=== PATIENT | male | born 1955 | race Caucasian/White ===

== ENCOUNTER 2019-09-07 16:53 | Inpatient (IN) | payer OTHER, SELFPAY ==
--- NOTE | ~2019-09-07 | XR_ITS ---
XR cholangiogram surg 1st inj DATE: 09/08/2019 16:33 INDICATION: Right upper quadrant abdominal pain. History of cholelithiasis. TECHNIQUE: Multiple spot C-arm images of right upper quadrant during cystic duct contrast injection d uring cholecystectomy procedure COMPARISON: None FINDINGS: There is an obstructing filling defect of the distal common bile duct, likely a distal comm on bile duct stone. There is mild dilatation of the extrahepatic biliary tree. IMPRESSION: Distal common bile duct obstruction, likely by a distal common bile duct stone Reviewed, dictated and finalized at [facility]. Reviewed, dictated and finalized at location A.
--- NOTE | ~2019-09-07 | XR_ITS ---
EXAMINATION: XR chest 1V portable INDICATION: Chest pain TECHNIQUE: Portable AP chest at 1751 hours COMPARISON: 10/10/2018 FINDINGS: There are minimal airspace opacities of the lung bases. No pleural effusion or pneumothorax is identified. The cardiomediastinal silhouette is normal. A coronary artery stent is noted. IMPRESSION: 1. Minimal airspace opacities of the lung bases, consistent with atelectasis versus pneumonia. Reviewed, dictated and finalized at location [facility]. IMPRESSION: 1. Minimal airspace opacities of the lung bases, consistent with atelectasis ve rsus pneumonia.
--- NOTE | ~2019-09-07 | XR_ITS ---
EXAMINATION: XR fluoroscopy no charge EXAM DATE: 09/09/2019 13:59 INDICATION: ERCP, abnormal cholangiogram reported as common bile duct obstruction. TECHNIQUE: Fluoroscopy used during ERCP performed by Dr. Shaheed Dalton MD. Fluoroscopic time of 1. 5 minutes with single static image available for interpretation. FINDINGS: Image demonstrates ERCP scope, CBD cannulation. Cholecystectomy clips. Moderate bowel gas. Correlate with procedure note. IMPRESSION: Fluoroscopy used during ERCP. Reviewed, dictated and finalized at location A.
--- NOTE | ~2019-09-07 | MR_ITS ---
EXAMINATION: MR MRCP wo/w con/w 3D wo ind DATE: 09/10/2019 08:56 INDICATION: Abnormal liver function tests. Common duct obstruction. TECHNIQUE: Magnetic resonance imaging (MRI) of the abdomen was performed without and with 17 mL Multi Cristian intravenous contrast. Sequences included coronal T2-weighted FS FSE, coronal T2-weighted FSE, a xial T1-weighted LAVA, coronal FS FIESTA, axial dual-echo T1-weighted SPGR, coronal lava-FLEX, sagitt al T2-weighted FSE, axial T2-weighted FSE, and axial DWI. Thick-slab T2-weighted FSE images were obta ined for magnetic resonance cholangiopancreatography (MRCP). Maximum intensity projection 3-D reconst ructions of the volumetric data were created by the technologist. Postcontrast sequences included cor onal LAVA-flex and time course of axial T1-weighted LAVA. COMPARISON: Cholangiogram 09/08/2019, ultrasound 04/17/2018 FINDINGS: ABDOMEN MRI: The lungs demonstrate mild atelectasis. There are trace pleural effusions. There are cys ts in the liver measuring up to 10 mm. There are changes of recent cholecystectomy. There is a small volume of ascites, including in the gallbladder fossa. There is a small volume of free intraperitonea l gas. The spleen is normal. There is incomplete pancreas divisum. The adrenal glands are normal. The re are cysts in the kidneys measuring up to 16 mm on the left. There are no dilated loops of bowel. T here are no pathologically enlarged lymph nodes. ABDOMEN MRCP: The common duct is normal and measures 7 mm. No choledocholithiasis. IMPRESSION: 1. No choledocholithiasis. 2. Small volume of ascites. Reviewed, dictated and finalized at location A.
--- NOTE | 2019-09-07 16:59 | ED.CHESTPAIN ---
HPI - Chest Pain General Chief Complaint: Chest Pain Stated Complaint: chest pain Time Seen by Provider: 09/07/19 16:58 Source: patient Mode of arrival: ambulatory Limitations: no limitations History of Present Illness HPI narrative: Patient is a 64 year old male who presents to the ED with complaints of lower sternum chest pain that started 40 minutes prior to arrival to the ED. His chest pain was originally an 8/10 and it went down to a 6/10 and is now a 4/10. He reports associated shortness of breath and sweats, but denies nausea, vomiting, diarrhea, cough, or cold. Patient took 2 Nitro 20 minutes ago. He has been having gallbladder attacks and was supposed to have surgery last week but it got cancelled due to the pandemic. He had pain a couple of days ago that got better after using his antacids but today it did not get better with his antacids. He was taking Coumadin but stopped because he was supposed to have surgery. He had a turkey sandwich with a hand full of Doritos before his pain started. He has a history of a heart attack with stent placement a year ago. He drinks occasionally but denies smoking or using drugs. 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 MD complaint: chest pain Pertinent past history: coronary artery disease and prior NC Onset (ago): minute(s) (40) Timing of current episode: episodic Prior episodes: Yes Onset: during rest Pain location: other (lower sternum) Pain scale (0-10): 4 Relieving factors: nothing Associated symptoms: diaphoresis Treatment prior to arrival: nitroglycerin Related Data Home Medications Medication Instructions Recorded Confirmed aspirin [Adult Low Dose Aspirin] 81 mg DAILY 09/07/19 09/07/19 atorvastatin 40 mg PO DAILY 09/07/19 09/07/19 carvedilol 3.125 mg PO BID 09/07/19 09/07/19 cholecalciferol (vitamin D3) 50,000 unit PO MONTHLY 09/07/19 09/07/19 nitroglycerin 0.4 mg SUBLINGUAL PRN PRN 09/07/19 09/07/19 omeprazole 20 mg PO DAILY 09/07/19 09/07/19 ticagrelor [Brilinta] 90 mg PO BID 09/07/19 09/07/19 Allergies Allergy/AdvReac Type Severity Reaction Status Date / Time levofloxacin Allergy Unknown Joint Pain Verified 09/07/19 17:04 Review of Systems Review of Systems: All systems reviewed & are unremarkable except as noted in HPI and below Constitutional: Constitutional: Denies chills and Reports other (sweats) Cardiovascular: Cardiovascular: Reports chest pain (lower sternum) Respiratory: Respiratory: Denies cough and Reports dyspnea Gastrointestinal: Gastrointestinal: Denies diarrhea, Denies nausea and Denies vomiting PMFSH Past Medical History Medical History (Updated 09/07/19 @ 21:19 by Kiki Nguyen MD) Acne rosacea BMI 24.0-24.9, adult Colon cancer screening Encounter for preventive health examination Encounter for special screening examination for neoplasm of prostate FHx: colon cancer Gallbladder attack Hearing loss Hx of myocardial infarction On intermodal owner operator truck driver drug therapy Surgical History Surgical History (Updated 09/07/19 @ 18:03 by Zaida Das) H/O heart artery stent History of cardiac catheterization Family History Family History (Updated 09/07/19 @ 19:56 by Nargis Ashford RN) Sibling Carcinoma of colon Hypertension Mother Family history of Alzheimer's disease Father Heart attack Carcinoma of colon Other Family history of cardiovascular disease Family history of malignant neoplasm Social History Social History Smoking status: Never smoker Alcohol intake: current Drinks per week: 4 Gender identity (if verbalized by the patient): Male Spiritual care concerns: No Agree to blood products: Yes Exam Const: General: cooperative, healthy appearing, no acute distress and other (talks fast) Nutritional Appearance: thin and other (tall) HENMT: Head: normocephalic and atraumatic Eyes: Pupils: Equal, round and reactive pupils present EOM: EOMs intact bilaterally Resp: Effort & I
[2019-09-07 17:00] VITALS: BP 127/82; PULSE 69; RESP 20; O2SAT 100
[2019-09-07 17:26] LABS: Basophils Percent Auto 0.5 % (0.2-1.2); Eosinophils Absolute Auto 0.5 K/mm3 (0-0.3); Eosinophils Percent Auto 6.5 % (0-4.4); Hematocrit 41.6 % (42.0-52.0); Hemoglobin 14.6 g/dL (14.0-18.0); Immature Granulocyte Absolute 0.02 K/mm3 (0.00-0.031); Immature Granulocyte Percent A 0.3 % (0-0.5); Lymphocytes Absolute Auto 1.66 K/mm3 (0.9-3.2); Lymphocytes Percent Auto 21.9 % (18.3-44.2); Mean Corpuscular HGB Conc 35.1 g/dl (32-36); Mean Corpuscular Hemoglobin 33.8 pg (26-34); Mean Corpuscular Volume 96.3 fl (80-100); Mean Platelet Volume 9.6 fl (7.4-10.4); Monocytes Absolute Auto 0.8 K/mm3 (0.1-0.6); Monocytes Percent Auto 10.6 % (2.6-8.5); Neutrophils Absolute Auto 4.6 K/mm3 (1.3-6.7); Neutrophils Percent Auto 60.2 % (45.5-73.1); Platelet Count Result 232 k/mm3 (150-375); Red Blood Count 4.32 M/mm3 (4.6-6.20); Red Cell Distribution Width 12.7 % (11.5-14.5); White Blood Count 7.6 K/mm3 (4.5-10.0)
[2019-09-07 17:34] LABS: Alanine Aminotransferase 48 U/L (4-50); Albumin Level 4.4 g/dL (3.5-5.1); Alkaline Phosphatase 41 U/L (38-126); Aspartate Amino Transferase 50 U/L (17-59); Bilirubin,Total 1.1 mg/dL (0.2-1.3); Blood Urea Nitrogen 24 mg/dL (9-20); Calcium 9.6 mg/dL (8.4-10.2); Carbon Dioxide 21 mmol/L (22-30); Chloride 104 mmol/L (98-107); Estimated CRCL calculation 64 ml/min; Estimated Glomerular Filt Rate > 60; Glucose 112 mg/dL (75-110); Potassium 3.9 mmol/L (3.4-5.0); Sodium 136 mmol/L (137-145)
[2019-09-07] MEDS: SODIUM CHLORIDE 0.9% IV 1,000 ML 150 ML IV CONT (17:40)
[2019-09-07] MEDS: MORPHINE SULFATE 4 MG/ML INJ IV PUSH (17:42)
[2019-09-07] MEDS: ONDANSETRON INJ 4 MG/2 ML VIAL IV PUSH (17:42)
[2019-09-07 17:46] LABS: NT Pro B Type Natriuretic Pept 45 PG/ML (5-100); Troponin I < 0.012 ng/mL (0.000-0.034)
[2019-09-07 19:47] VITALS: BP 113/73; PULSE 75; RESP 18; O2SAT 97
[2019-09-07 20:00] VITALS: PULSE 68
--- NOTE | 2019-09-07 20:01 | ADMGEN ---
This patient, Francesco Ramires, was admitted to IMU Room 200-01. Patient/family oriented to hospital policies and general routines including ID bracelet, bed and alarms, visiting hours, pain management, procedures, bathroom and other care routines, personal items, smoking policy, room service/diet, and visiting hours. Valuables list has been completed. Information on how to activate the Rapid Response Team has been discussed. Patient/Family are encouraged to report perceived risks to care and to ask questions if they do not understand what they are told or what they should do.
[2019-09-07 20:02] VITALS: BP 115/73; PULSE 65; RESP 18; TEMP 36.6; O2SAT 100; BMI 23.2
[2019-09-07 21:58] LABS: Troponin I < 0.012 ng/mL (0.000-0.034)
[2019-09-07 21:59] VITALS: PULSE 83
[2019-09-07] MEDS: carvediloL 3.125 MG TABLET PO (21:59)
[2019-09-07 22:00] VITALS: PULSE 68
[2019-09-08] VITALS (21 sets, daily range): BP systolic 101–141; BP diastolic 61–87; PULSE 58–90; RESP 12–20; TEMP 36.4–37.3; O2SAT 93–100
[2019-09-08 00:49] LABS: Troponin I < 0.012 ng/mL (0.000-0.034)
[2019-09-08 04:47] LABS: Basophils Percent Auto 0.8 % (0.2-1.2); Eosinophils Absolute Auto 0.3 K/mm3 (0-0.3); Eosinophils Percent Auto 6.6 % (0-4.4); Hemoglobin 13.7 g/dL (14.0-18.0); Immature Granulocyte Absolute 0.01 K/mm3 (0.00-0.031); Immature Granulocyte Percent A 0.2 % (0-0.5); Lymphocytes Absolute Auto 1.23 K/mm3 (0.9-3.2); Lymphocytes Percent Auto 25.4 % (18.3-44.2); Mean Corpuscular HGB Conc 34.3 g/dl (32-36); Mean Corpuscular Hemoglobin 33.7 pg (26-34); Mean Corpuscular Volume 98.3 fl (80-100); Mean Platelet Volume 9.2 fl (7.4-10.4); Monocytes Absolute Auto 0.4 K/mm3 (0.1-0.6); Monocytes Percent Auto 8.3 % (2.6-8.5); Neutrophils Absolute Auto 2.8 K/mm3 (1.3-6.7); Neutrophils Percent Auto 58.7 % (45.5-73.1); Platelet Count Result 172 k/mm3 (150-375); Red Blood Count 4.07 M/mm3 (4.6-6.20); Red Cell Distribution Width 13.1 % (11.5-14.5); White Blood Count 4.8 K/mm3 (4.5-10.0)
[2019-09-08 04:58] LABS: Partial Thromboplastin Time 34.5 SECONDS (22.3-36.8)
[2019-09-08 05:27] LABS: Alanine Aminotransferase 47 U/L (4-50); Albumin Level 3.7 g/dL (3.5-5.1); Alkaline Phosphatase 36 U/L (38-126); Aspartate Amino Transferase 35 U/L (17-59); Bilirubin,Total 0.9 mg/dL (0.2-1.3); Blood Urea Nitrogen 15 mg/dL (9-20); Calcium 8.4 mg/dL (8.4-10.2); Carbon Dioxide 24 mmol/L (22-30); Chloride 106 mmol/L (98-107); Estimated CRCL calculation 93 ml/min; Estimated Glomerular Filt Rate > 60; Glucose 72 mg/dL (75-110); Magnesium 2.1 mg/dL (1.6-2.3); Potassium 3.6 mmol/L (3.4-5.0); Sodium 141 mmol/L (137-145)
--- NOTE | 2019-09-08 06:07 | PM.IMHP ---
H&P: HPI History of Present Illness Chief complaint: chest pain Narrative: Date and time of patient contact: 09/08/2019 at 5:30 a.m. Francesco Ramires is a 64 year old male with a past medical history of coronary artery disease with history of 3 cardiac stents July 2018 and gallbladder dysfunction who presented to the ER from home with chest pain. The patient reports that the chest pain is in the bottom of his sternum. The pain is started 40 minutes before he arrived to the ER and was originally 8/10 intensity and decreased down to a 4/10 in intensity. He reports associated shortness of breath and sweats. He denies any nausea or vomiting. He has not had change in bowel movements. He did have a positive Cologuard test in his planned colonoscopy has been rescheduled due to COVID-19 precautions. He has not had any constipation or diarrhea. He denies any hematochezia or melena. He reports that the pain is similar to when he had his STEMI. He had actually been scheduled for a cholecystectomy last year but it was canceled when he had his STEMI. It was thought that the patient's symptoms were all due to his heart and not his gallbladder. He reported that 3 months ago he began having symptoms again and has been to the ER the on 3 different occasions due to the symptoms. Each time he has had negative EKGs and enzymes. He was subsequently rescheduled for a cholecystectomy last week but that too was rescheduled due to the COVID-19 precautions. In the last 3 days he has had 3 episodes of gallbladder attacks. The last 2 days had improved with antacids and Pepcid. However when he presented to the ER yesterday his symptoms were more severe and he required morphine for pain relief. He had taken 2 nitro and Pepcid at home yesterday before coming to the ER with only minimal relief in his symptoms. He had previously been on Coumadin according to the ER note but it had been held for anticipated surgery. He has also been on Brilinta. His last dose of Brilinta was on the morning of the . He has been doing yard work for several hours a day for the last week or so without any shortness of breath. He was more concerned about yesterday's pain because he had not eaten for several hours prior to the onset of his symptoms. His last meal had been turkey sandwich and some tortilla chips for lunch. He reports that since his heart symptoms in his gallbladder symptoms are so similar in that he is going to continue keeps coming into the ER each time he has an attack/pain until his gallbladder is taken out. He denies any cough, congestion, fevers or chills. 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 He denies any ill contacts. Review of Systems Review of Systems: Narrative: 12 systems were reviewed with pertinent positives and negatives per HPI. Except as documented in the HPI, all other systems were reviewed and are negative. [facility] Past Medical History Medical History (Updated 09/08/19 @ 06:26 by Jeannie Jerome DO) Acne rosacea BMI 24.0-24.9, adult Colon cancer screening Colonoscopy has been ordered but delayed due to code 19 concerns Hearing loss Hx of myocardial infarction Surgical History Surgical History (Updated 09/08/19 @ 06:26 by Jeannie Jerome DO) H/O heart artery stent 3 stents August 2019 History of cardiac catheterization Family History Family History (Updated 09/08/19 @ 06:30 by Jeannie Jerome DO) Sibling Hypertension Carcinoma of colon Mother Dementia Father Heart attack Carcinoma of colon Social History Social History (Updated 09/08/19 @ 06:31 by Jeannie Jerome DO) Social History: Primary care physician: Dr. Dane Greco Code status: Full code Smoking status: Never smoker Alcohol intake: current Drinks per week: 4 Alcohol use details: The patient drinks between 4 and 5 alcoholic beverages a week. Living arrangements: with family Additional living
[2019-09-08] MEDS: DEXTROSE 5%/0.9% SOD CHL 1,000 ML 75 ML IV CONT (08:46)
[2019-09-08] MEDS: carvediloL 3.125 MG TABLET PO ×2 (08:53→21:08)
--- NOTE | 2019-09-08 09:13 | PM.IMPN ---
Progress Note: A&P Assessment and Plan (1) Gallbladder attack: Code(s): K82.9 - Disease of gallbladder, unspecified Status: Acute Assessment and Plan: Per patient, symptoms are similar to previous known gallbladder attacks. Was previously scheduled to have gallbladder removed but canceled due to current pandemic. LFTs are currently normal. General surgery consulted from the emergency room and await consultation. In the meantime, will leave patient NPO. Will start IV fluids with dextrose as glucose in the 60s this morning. Will continue to monitor. (2) Chest pain: Qualifiers: Chest pain type: unspecified Qualified Code(s): R07.9 - Chest pain, unspecified Code(s): R07.9 - Chest pain, unspecified Status: Acute Assessment and Plan: Patient actually complaining of epigastric pain which is more consistent with his known gallbladder issues. Serial troponin levels are negative x3. EKG with no acute changes. Telemetry reviewed on 09/08/2019 with sinus rhythm. No cardiology consultation needed at this time. (3) CAD (coronary artery disease): Qualifiers: Coronary Disease-Associated Artery/Lesion type: [place] artery [place] vs. transplanted heart: [place] heart Associated angina: without angina Qualified Code(s): I25.10 - Atherosclerotic heart disease of [place] coronary artery without angina pectoris Code(s): I25.10 - Atherosclerotic heart disease of [place] coronary artery without angina pectoris Status: Acute Assessment and Plan: Known history of myocardial infarction with stent placement. Patient reports he last took Brilinta at 8:00 a.m. on 09/07/2019. Last ASA was 48 hours ago. Will leave Brilinta and ASA on hold while awaiting surgical evaluation. Continue Coreg and atorvastatin. Will monitor. (4) DVT prophylaxis: Code(s): Z29.9 - Encounter for prophylactic measures, unspecified Status: Acute Assessment and Plan: No mechanical or pharmacologic as low risk presently and being evaluated by surgery. Time Spent With Patient Time with patient: 15 - 25 minutes Subjective Date/time seen: 09/08/19 09:13 Interval history: Date of Service: 09/08/2019. Admitted with epigastric pain. Patient with known CAD but also gallbladder disease. Still has some epigastric pain this morning to palpation. No nausea or vomiting. Does have headache and dizziness from not eating. No chest pain or pressure. No shortness of breath. Review of Systems Constitutional: Constitutional: Denies chills and Denies fever(s) ENT: Denies nasal congestion and Denies nasal discharge Cardiovascular: Cardiovascular: Denies chest pain and Denies palpitations Respiratory: Respiratory: Denies dyspnea Gastrointestinal: Gastrointestinal: Reports abdominal pain (epigastric), Denies nausea and Denies vomiting Genitourinary: Genitourinary: Reports no additional male genitourinary complaints Musculoskeletal: Musculoskeletal: Reports no additional musculoskeletal complaints Integumentary/Breasts: Skin/Breast: Denies rash Neurologic: Reports headache(s) Psychiatric: Psychiatric: Denies confusion Exam Narrative: Exam Narrative: Awake and alert. Const: General: no acute distress HENMT: Mouth: Yes moist mucous membranes Neck: Neck: supple Lymphatic: lymphadenopathy not noted Resp: Auscultation: clear to auscultation bilaterally, no rales and no wheezes Cardio: Rate: regular rate Rhythm: regular rhythm GI: Inspection: non-distended GI Palp: Yes Tenderness to palpation present (GI) (mild tenderness to palpation in epigastric/RUQ area; no rebound or guarding) Auscultation: normal bowel sounds Skin: General skin exam: no rashes or lesions noted Neuro: Speech: normal speech Extrem: General: no edema Psych: Mental Status: mental status grossly normal Affect: normal affect Objective Data Vital Signs Vital Signs: Vital Signs - 24 hr 09/06
--- NOTE | 2019-09-08 12:27 | PM.CNGS ---
Assessment and Plan Assessment and plan (1) Chronic cholecystitis with calculus: Onset Date: ~07/2018 Code(s): K80.10 - Calculus of gallbladder with chronic cholecystitis without obstruction Status: Acute Assessment and Plan: The patient has seemed to develop crescendoing gallbladder attacks. Due to his chronic cholecystitis with cholelithiasis. Because of this I think that his situation is difficult to detect and differentiate compared to his heart problems. Therefore, he should not wait for further elective surgery and should rather go ahead with an semi-urgent laparoscopic cholecystectomy. He was admitted last night and serial enzymes were negative for heart issues. EKG is been okay also. Prior to a cessation of elective surgeries the patient was worked up with a cardiac stress test and echocardiogram which he passed. (2) CAD (coronary artery disease): Onset Date: ~07/2018 Qualifiers: Associated angina: without angina Coronary Disease-Associated Artery/Lesion type: [place] artery [place] vs. transplanted heart: [place] heart Qualified Code(s): I25.10 - Atherosclerotic heart disease of [place] coronary artery without angina pectoris Code(s): I25.10 - Atherosclerotic heart disease of [place] coronary artery without angina pectoris Status: Acute (3) Chest pain: Onset Date: 09/07/19 Qualifiers: Chest pain type: unspecified Qualified Code(s): R07.9 - Chest pain, unspecified Code(s): R07.9 - Chest pain, unspecified Status: Acute Assessment and Plan: Seems to be associated with his episode of pain related to chronic cholecystitis and cholelithiasis (4) FHx: colon cancer: Onset Date: ~08/2019 Code(s): Z80.0 - Family history of malignant neoplasm of digestive organs Status: Acute Assessment and Plan: Patient has a positive colo guard test and is planning to have a colonoscopy in the near future. Additional Plan Since Dr. Salcedo has seen him in the past will discuss care with him If agreeable patient will proceed to semi-urgent laparoscopic cholecystectomy by either myself or Dr. Katz in the next couple days. Will hold his Brilinta and aspirin until such time as we have this completed. Labs are okay so will not do antibiotics except for a dose just prior to surgery as prophylactic. 1341 -- I have now talked this over with Dr. Salcedo and he would like me to proceed if I feel it is necessary. I have talked to the OR they a given me a time for later today. We have informed the patient and he wishes to proceed with his laparoscopic cholecystectomy. History of Present Illness Consult details Consult date: 09/08/19 Reason for consult: abdominal pain (Epigastric radiating to the chest anteriorly) Requesting physician: Jeannie Jerome DO Narrative: Francesco Ramires is a 64 year old male with a past medical history of coronary artery disease with a history of 3 cardiac stents placed in July of 2018 and a knowngallbladder dysfunction with Cholelithiasis, who presented to the ER from home last night with chest pain. The patient reports that the chest pain is at the bottom of his sternum. The pain is started 40 minutes before he arrived to the [place] ER and was originally 8/10 in intensity and decreased down to a 4/10 in intensity. He reports associated shortness of breath and sweats. He denies any nausea or vomiting. He has not had change in bowel movements. He did have a positive Cologuard test and his planned colonoscopy has been rescheduled due to COVID-19 precautions also. He has not had any constipation or diarrhea. He denies any hematochezia or melena. He reports that the current chest pain is similar to when he had his STEMI. He had actually been scheduled for a cholecystectomy last year because of some symptoms that led to an ultrasound which showed cholelithiasis, but it was canceled when he had his STEMI. It was though
--- NOTE | 2019-09-08 13:46 | WPDANESEPPF ---
Anes - Initial Pre Proc Eval Procedure: Operation Date: 09/08/19 15:00 Proposed Procedures p Laparoscopic Cholecystectomy with Intraoperative Cholangiogram, Possible Open - Clovis Blackburn MD Date/Time: 09/08/19 13:46 Surgeon: Brandon Farnsworth MD Pre Op Diagnosis: chest pain Patient Data Age: 64 Gender: M Height: 6 ft 1 in Weight: 79.6 kg Last Vital Signs Temp 36.6 C 09/08/19 12:00 Pulse 63 09/08/19 12:00 Resp 16 09/08/19 12:00 BP 121/75 09/08/19 12:00 Pulse Ox 99 09/08/19 12:00 Allergies Allergy/AdvReac Type Severity Reaction Status Date / Time levofloxacin Allergy Unknown Joint Pain Verified 09/07/19 17:04 Home Medications Medication Instructions Recorded Confirmed Type aspirin [Adult Low Dose Aspirin] 81 mg DAILY 09/07/19 09/07/19 History atorvastatin 40 mg PO DAILY 09/07/19 09/07/19 History carvedilol 3.125 mg PO BID 09/07/19 09/07/19 History cholecalciferol (vitamin D3) 50,000 unit PO MONTHLY 09/07/19 09/07/19 History nitroglycerin 0.4 mg SUBLINGUAL PRN PRN 09/07/19 09/07/19 History omeprazole 20 mg PO DAILY 09/07/19 09/07/19 History ticagrelor [Brilinta] 90 mg PO BID 09/07/19 09/07/19 History Laboratory Tests 09/07/19 09/07/19 09/07/19 17:10 17:10 21:28 WBC 7.6 K/mm3 K/mm3 (4.5-10.0) RBC 4.32 M/mm3 L M/mm3 (4.6-6.20) Hgb 14.6 g/dL g/dL (14.0-18.0) Hct 41.6 % L % (42.0-52.0) MCV 96.3 fl fl (80-100) MCH 33.8 pg pg (26-34) MCHC 35.1 g/dl g/dl (32-36) RDW 12.7 % % (11.5-14.5) Plt Count 232 k/mm3 k/mm3 (150-375) MPV 9.6 fl fl (7.4-10.4) Immature Gran % (Auto) 0.3 % % (0-0.5) Neut % (Auto) 60.2 % % (45.5-73.1) Lymph % (Auto) 21.9 % % (18.3-44.2) Bartholomew % (Auto) 10.6 % H % (2.6-8.5) Eos % (Auto) 6.5 % H % (0-4.4) Baso % (Auto) 0.5 % % (0.2-1.2) Lymph # (Auto) 1.66 K/mm3 K/mm3 (0.9-3.2) Bartholomew # (Auto) 0.8 K/mm3 H K/mm3 (0.1-0.6) Eos # (Auto) 0.5 K/mm3 H K/mm3 (0-0.3) Baso # (Auto) 0.0 K/mm3 K/mm3 (0.0-0.1) Abs Immat Gran (auto) 0.02 K/mm3 K/mm3 (0.00-0.031) Absolute Neuts (auto) 4.6 K/mm3 K/mm3 (1.3-6.7) Absolute Nucleated RBC 0.0 K/mm3 K/mm3 (0.0-0.012) Nucleated RBC % 0.0 % % (0.0-0.2) APTT Sodium 136 mmol/L L mmol/L (137-145) Potassium 3.9 mmol/L mmol/L (3.4-5.0) Chloride 104 mmol/L mmol/L (98-107) Carbon Dioxide 21 mmol/L L mmol/L (22-30) BUN 24 mg/dL H mg/dL (9-20) Creatinine 1.20 mg/dL mg/dL (0.7-1.3) Estim Creat Clear Calc 64 ml/min ml/min Estimated GFR > 60 (59 - ) Glucose 112 mg/dL H mg/dL (75-110) Calcium 9.6 mg/dL mg/dL (8.4-10.2) Magnesium Total Bilirubin 1.1 mg/dL mg/dL (0.2-1.3) AST 50 U/L U/L (17-59) ALT 48 U/L U/L (4-50) Alkaline Phosphatase 41 U/L U/L (38-126) Troponin I < 0.012 ng/mL ng/mL < 0.012 ng/mL ng/mL (0.000-0.034) (0.000-0.034) NT-Pro-B Natriuret Pep 45 PG/ML PG/ML (5-100) Total Protein 8.0 g/dL g/dL (6.3-8.2) Albumin 4.4 g/dL g/dL (3.5-5.1) 09/08/19 09/08/19 09/08/19 00:19 04:14 04:14 WBC 4.8 K/mm3 K/mm3 (4.5-10.0) RBC 4.07 M/mm3 L M/mm3 (4.6-6.20) Hgb 13.7 g/dL L g/dL (14.0-18.0) Hct 40.0 % L % (42.0-52.0) MCV 98.3 fl fl (80-100) MCH 33.7 pg pg (26-34) MCHC 34.3 g/dl g/dl (32-36) RDW 13.1 % % (11.5-14.5) Plt Count 172 k/mm3 k/mm3 (150-375) MPV 9.2 fl fl (7.4-10.4) Immature Gran % (Auto) 0.2 % % (0-0.5) Neut % (Auto) 58.7 % % (45.5-73.1) Lymph % (Auto) 25.4 % % (18.3-44.2) Bartholomew
[2019-09-08] MEDS: LACTATED RINGERS 1,000 ML 30 ML IV CONT (14:40)
[2019-09-08] MEDS: ceFAZolin 2 GM/D5W 50 ML 2 GM/50 ML BAG IVPB (14:58)
[2019-09-08 15:21] LABS: Glucose Point of Care 67 (65-105)
[2019-09-08] MEDS: BUPIVACAINE/EPINEPHRINE 0.5% 30 ML VIAL INFILTRATE (15:28)
--- NOTE | 2019-09-08 17:26 | PM.PROC ---
Procedure Note - Detailed Date of procedure: 09/08/19 Pre-op diagnosis: chest pain Chronic cholecystitis with cholelithiasis Post-op diagnosis: other (Chronic cholecystitis with cholelithiasis and choledocholithiasis) Procedure performed: Laparoscopic cholecystectomy with intraoperative cholangiogram. Description of procedure: Procedure Details: Patient was seen preoperatively in the holding area and risks, benefits and alternatives confirmed. Patient was taken to the operating room and general anesthesia was induced. A time out was then preformed with the surgery team confirming patient and site of surgery. The abdomen was prepped and draped in the usual sterile fashion. Incision was made just below the umbilicus. Two stay sutures of O- Vicryl were used to elevate the mid-line fascia beneath the umbilicus and a small incision was made under direct vision. The peritoneum was entered. The 12 mm Stevens cannula was introduced under direct vision. First under low flow and then under high flow the abdomen was insufflated with carbon dioxide never exceeding a pressure of 14. Three 5 mm trocars were then introduced under direct vision. The following trocars were introduced under direct vision: a 5 mm in the epigastrium and two 5 mm trocars along the right costal margin. There was some omental adhesions along the lower half of the inferior surface of the gallbladder. These were taken down with Bovie cautery. The gall bladder was grasped and the cystic duct and artery were dissected free and clipped with an 5 mm endo-clip nurse school. A small hole was made in the cystic duct with endoshears and a cholagio-cath introduced. A cholangiogram was obtained revealing flow into the cystic duct, common bile duct, common hepatic, right and left hepatic ducts with some flow into the duodenum but there was a single small filling defect in the extrahepatic biliary tree and some mild dilation. Some dye did seem to pass through the sphincter of Oddi but there did seem to be an apparent 4-5 mm distal common bile duct stone. (see radiology report, this was discussed with Dr. Carrasco). Before removing the catheter I did try to flush the stone on through into the duodenum with 20 cc of saline and then did a repeat cholangiogram but the stone did not budge. The catheter was removed and the cystic duct was clipped with a 5 mm endoclip-nurse school. The cystic duct was then transected. The cystic artery was also transected at this point. As I dissected up the back of the gallbladder there was a another posterior branch of the cystic artery that was doubly clipped on the patient's side and 1 on the gallbladder side. This was then transected and we finished taking the gallbladder off of the bed of the liver. There was some brisk bleeding in a couple spots that was able to be controlled with cautery on the liver bed. The gall bladder was removed using electrocautery and then removed using a large 10 mm grasper via the umbilical incision. I did have to enlarge the vertical fascial defect at the umbilicus to about 3.5 cm. There was 1 very large stone within the gallbladder that would not come out without enlarging the fascial defect. This stone probably measured 3.5 x 3 cm in size. There was also small guillen occurred in the gallbladder once it was outside of the abdomen and decide some dark bile that leaked from a there were several small and medium-size black stones that came out. The trocars were removed visualizing hemostasis and the remaining gas evacuated. The large trocar site at the umbilicus was closed with two 0 vicryl figure of 8 sutures, 1 [id number] and 1 simple suture of # 1 Vicryl. This seemed to approximate that defect fairly well. The 2 stay sutures mentioned above on either side of the fascia were also tied together to help approximate this midline fascia. Further local anesthetic was placed into each incision for postop pain control. The skin incisions were closed with a subcuticular
[2019-09-08 17:42] LABS: Glucose Point of Care 66 (65-105)
--- NOTE | 2019-09-08 18:12 | PC.NURSE ---
Orders to transfer to med / tele after surgery- report given to Lianna TEE- belongings sent up to room
--- NOTE | 2019-09-08 18:25 | PC.NURSE ---
This patient, Francesco Ramires, was received from IMU and PACU on 09/08/19 at 1825. Personal belongings list checked and signed. Patient/family oriented to unit policies and routines
--- NOTE | 2019-09-08 18:25 | PC.NURSE ---
This patient, Francesco Ramires, was admitted to [address] [facility] Surg Room 315-01. Patient/family oriented to hospital policies and general routines including ID bracelet, bed and alarms, visiting hours, pain management, procedures, bathroom and other care routines, personal items, smoking policy, room service/diet, and visiting hours. Valuables list has been completed. Information on how to activate the Rapid Response Team has been discussed. Patient/Family are encouraged to report perceived risks to care and to ask questions if they do not understand what they are told or what they should do.
[2019-09-08] MEDS: LACTATED RINGERS 1,000 ML 100 ML IV CONT (19:00)
[2019-09-08] MEDS: PANTOPRAZOLE 40 MG TABLET PO (20:10)
[2019-09-08] MEDS: ATORVASTATIN 40 MG TABLET PO (20:10)
[2019-09-08] MEDS: SENNA/DOCUSATE SODIUM TABLET 2 TAB PO (21:09)
[2019-09-08 21:44] LABS: Glucose Point of Care 108 (65-105)
[2019-09-09] VITALS (19 sets, daily range): BP systolic 109–134; BP diastolic 52–84; PULSE 62–90; RESP 16–20; TEMP 36.4–37.5; O2SAT 94–100
[2019-09-09] MEDS: ONDANSETRON INJ 4 MG/2 ML VIAL IV PUSH (00:45)
[2019-09-09 06:10] LABS: Hematocrit 41.4 % (42.0-52.0); Hemoglobin 14.4 g/dL (14.0-18.0); Mean Corpuscular HGB Conc 34.8 g/dl (32-36); Mean Corpuscular Volume 97.9 fl (80-100); Mean Platelet Volume 9.5 fl (7.4-10.4); Platelet Count Result 176 k/mm3 (150-375); Red Blood Count 4.23 M/mm3 (4.6-6.20); Red Cell Distribution Width 12.9 % (11.5-14.5); White Blood Count 6.4 K/mm3 (4.5-10.0)
[2019-09-09 06:29] LABS: Alanine Aminotransferase 149 U/L (4-50); Albumin Level 4.1 g/dL (3.5-5.1); Alkaline Phosphatase 34 U/L (38-126); Aspartate Amino Transferase 125 U/L (17-59); Bilirubin Direct 1.1 mg/dL (0-0.3); Bilirubin,Total 3.8 mg/dL (0.2-1.3); Blood Urea Nitrogen 11 mg/dL (9-20); Calcium 8.5 mg/dL (8.4-10.2); Carbon Dioxide 23 mmol/L (22-30); Chloride 103 mmol/L (98-107); Estimated CRCL calculation 105 ml/min; Estimated Glomerular Filt Rate > 60; Glucose 122 mg/dL (75-110); Lipase 25 U/L (23-300); Potassium 4.1 mmol/L (3.4-5.0); Sodium 135 mmol/L (137-145)
--- NOTE | 2019-09-09 07:46 | WPDGICN ---
Assessment and Plan Assessment and plan (1) Chronic cholecystitis with calculus: Onset Date: ~07/2018 Code(s): K80.10 - Calculus of gallbladder with chronic cholecystitis without obstruction Status: Acute Assessment and Plan: Patient is status post lap choly yesterday. Retained common bile duct gallstone by intraoperative cholangiogram. Patient became symptomatic last night with elevated LFTs. Plan is to proceed with ERCP today. Hopefully to extract this gallstone. (2) FHx: colon cancer: Onset Date: ~08/2019 Code(s): Z80.0 - Family history of malignant neoplasm of digestive organs Status: Acute Assessment and Plan: Family history of colon cancer in a sibling. Plan is for neoplasia screening colonoscopy electively after the viral crisis has abated. Hopefully within the next several months. (3) CAD (coronary artery disease): Onset Date: ~07/2018 Qualifiers: Coronary Disease-Associated Artery/Lesion type: [place] artery [place] vs. transplanted heart: [place] heart Associated angina: without angina Qualified Code(s): I25.10 - Atherosclerotic heart disease of [place] coronary artery without angina pectoris Code(s): I25.10 - Atherosclerotic heart disease of [place] coronary artery without angina pectoris Status: Acute Assessment and Plan: Patient has a history of heart stent placement 1 year ago. (4) Choledocholithiasis: Code(s): K80.50 - Calculus of bile duct without cholangitis or cholecystitis without obstruction Status: Acute Assessment and Plan: Retained common bile duct gallstones by a intraoperative cholangiogram after cholecystectomy yesterday. ERCP planned for today. GI Consult Note Consult date/time: 09/09/19 07:46 HPI: Francesco Ramires is a 64 year old male seen in evaluation at the request of Dr. Blackburn surgery service. Patient is status post lap choly yesterday with retained common bile duct gallstones by intraoperative cholangiogram. Patient's past history is significant for atherosclerotic heart disease in July of 2018 1 year ago underwent heart catheterization with 3 heart stents placed. Patient is known to have gallbladder disease. He began to have epigastric atypical chest pain yesterday which prompted his presentation to [facility] Emergency Room. He has been seen by Dr. Blackburn underwent laparoscopic cholecystectomy yesterday however retained common bile ducts stone was identified. Overnight patient had rather significant abdominal pain. Along with elevation of LFTs. Patient reports never having had a screening colonoscopy. Review of Systems Review of Systems: All systems reviewed & are unremarkable except as noted in HPI and below PMFSH Past Medical History Medical History Acne rosacea BMI 24.0-24.9, adult Chronic cholecystitis with calculus (~07/2018) Colon cancer screening Colonoscopy has been ordered but delayed due to code 19 concerns Hearing loss Hx of myocardial infarction Surgical History Surgical History H/O heart artery stent 3 stents August 2019 History of cardiac catheterization Family History Family History Sibling Hypertension Carcinoma of colon Mother Dementia Father Heart attack Carcinoma of colon Social History Social History Social History: Primary care physician: Dr. Dane Greco Code status: Full code Smoking status: Never smoker Alcohol intake: current Drinks per week: 4 Alcohol use details: The patient drinks between 4 and 5 alcoholic beverages a week. Living arrangements: with family Additional living arrangements comments: He has been and has 4 children from his 1st marriage. He is remarried
--- NOTE | 2019-09-09 08:23 | PM.PNGS ---
Progress Note: A&P Assessment and Plan (1) Choledocholithiasis: Code(s): K80.50 - Calculus of bile duct without cholangitis or cholecystitis without obstruction Status: Acute (2) Chronic cholecystitis with calculus: Onset Date: ~07/2018 Code(s): K80.10 - Calculus of gallbladder with chronic cholecystitis without obstruction Status: Acute Assessment and Plan: Did well postop day 1. ERCP today and if done early and no complications possibly home later today. Okay with me to restart proline 10 aspirin tomorrow morning if everything going well when he discharges. (3) CAD (coronary artery disease): Onset Date: ~07/2018 Qualifiers: Associated angina: without angina Coronary Disease-Associated Artery/Lesion type: [place] artery [place] vs. transplanted heart: [place] heart Qualified Code(s): I25.10 - Atherosclerotic heart disease of [place] coronary artery without angina pectoris Code(s): I25.10 - Atherosclerotic heart disease of [place] coronary artery without angina pectoris Status: Acute (4) Chest pain: Onset Date: 09/07/19 Qualifiers: Chest pain type: unspecified Qualified Code(s): R07.9 - Chest pain, unspecified Code(s): R07.9 - Chest pain, unspecified Status: Ruled-out Additional Plan If patient goes home would send home on [place] for pain and to follow the low-fat diet that he already has instructions on. Patient also should schedule appointment to have a recheck with me in about 2 weeks. Subjective Subjective Date/Time Seen: 09/09/19 08:23 Post Op day: 1 (Doing well, postop day 1) Interval history: Patient had a bad episode of pain for about 2 hours at 10:00 p.m. last night. This was probably a result of obstruction from his distal common duct stone. This is resolved now and he has been seen by GI. ERCP is planned for later this morning. Review of Systems Constitutional: Constitutional: Reports no additional constitutional complaints ENT: Reports other (Mucous Membranes moist.) Cardiovascular: Cardiovascular: Denies dyspnea Respiratory: Respiratory: Denies pain on inspiration and Denies dyspnea Musculoskeletal: Musculoskeletal: Reports other (No calf swelling or edema) Integumentary/Breasts: Skin/Breast: Reports system reviewed and no additional complaints, except as docu Exam Const: General: cooperative, no acute distress, alert and awake Orientation/consciousness: patient oriented x3 HENMT: Mouth: Yes moist mucous membranes Neck: Neck: normal visual inspection Chest: Chest palpation & inspection: normal inspection of the chest Resp: Effort & Inspection: normal respiratory effort Auscultation: clear to auscultation bilaterally Cardio: Jugular venous distension: no JVD Rate: regular rate Rhythm: regular rhythm GI: Inspection: normal to inspection GI Palp: Yes Soft to palpation and Yes Tenderness to palpation present (GI) (Mild, near umbilical incision) Rectal Exam: deferred Other: Incisions clean and dry with surgical glue in place Some bruising inferior and just to the right of the umbilicus Neuro: General: patient oriented x3 and moves all extremities Speech: normal speech Extrem: General: normal exam except as noted Psych: Mental Status: mental status grossly normal Speech and movement: Normal speech and movement present Affect: normal affect Thought content: Yes Normal thought content present Objective Data Vital Signs Vital Signs: Vital Signs - 24 hr 09/08/19 08:53 09/08/19 10:00 09/08/19 12:00 Temperature 36.6 C Pulse Rate 61 76 63 Respiratory Rate 16 Blood Pressure 121/75 Pulse Oximetry 99 09/08/19 14:24 09/08/19 17:19 09/08/19 17:30 Temperature 37.3 C 36.4 C Pulse Rate 67 73 69 Respiratory Rate 20 16 14 Blood Pressure 120/78 126/83 134/82 Pulse Oximetry 98 96 99 09/08/19 17:45 09/08/19 18:00 09/08/19 18:14 Temperature Pulse Rate 67 75 73 Respirato
--- NOTE | 2019-09-09 08:46 | PM.IMPN ---
Progress Note: A&P Assessment and Plan (1) Chronic cholecystitis with calculus: Onset Date: ~07/2018 Code(s): K80.10 - Calculus of gallbladder with chronic cholecystitis without obstruction Status: Acute Assessment and Plan: Per patient, symptoms on presentation similar to previous known gallbladder attacks. Was previously scheduled to have gallbladder removed but canceled due to current pandemic. General surgery consulted from the emergency room. Patient now S/P laparoscopic cholecystectomy with intraoperative cholangiogram by Dr. Blackburn. GI consulted due to intraoperative cholangiogram with distal common bile duct obstruction. Plan for ERCP today. Possible discharge later today or tomorrow pending results of ERCP. (2) Choledocholithiasis: Code(s): K80.50 - Calculus of bile duct without cholangitis or cholecystitis without obstruction Status: Acute Assessment and Plan: Intraoperative cholangiogram as noted above. Appreciate help from GI. Plan for ERCP today. LFTs did increase today but expected given circumstances. Will continue to follow. (3) CAD (coronary artery disease): Onset Date: ~07/2018 Qualifiers: Associated angina: without angina Coronary Disease-Associated Artery/Lesion type: [place] artery [place] vs. transplanted heart: [place] heart Qualified Code(s): I25.10 - Atherosclerotic heart disease of [place] coronary artery without angina pectoris Code(s): I25.10 - Atherosclerotic heart disease of [place] coronary artery without angina pectoris Status: Acute Assessment and Plan: Known history of myocardial infarction with stent placement. No acute issue. Last does of Brilinta at 8:00 a.m. on 09/07/2019. Last ASA on 09/06/2019. Continue to hold Brilinta and ASA with plan to restart 24 hours after discharge. Continue Coreg and atorvastatin. Will monitor. (4) DVT prophylaxis: Code(s): Z29.9 - Encounter for prophylactic measures, unspecified Status: Acute Assessment and Plan: No mechanical or pharmacologic as low risk presently and need for additional procedure today. Time Spent With Patient Time with patient: 15 - 25 minutes Subjective Date/time seen: 09/09/19 08:46 Interval history: Date of Service: 09/09/2019. Admitted with epigastric pain and found to have cholecystitis. Patient also with known CAD. Did go to the operating room yesterday with cholecystectomy performed but found to have gallstone in common bile duct. Patient reports had severe abdominal pain at approximately 10:00 p.m. last night. Pain was worse than pain that brought him originally to the emergency room. Pain is better now and only occurs with movement. No nausea or vomiting. No chest pain. No shortness of breath. Review of Systems Constitutional: Constitutional: Denies chills and Denies fever(s) ENT: Denies nasal congestion and Denies nasal discharge Cardiovascular: Cardiovascular: Denies chest pain and Denies palpitations Respiratory: Respiratory: Denies dyspnea Gastrointestinal: Gastrointestinal: Reports abdominal pain (with movement today), Denies nausea and Denies vomiting Genitourinary: Genitourinary: Reports no additional male genitourinary complaints Musculoskeletal: Musculoskeletal: Reports no additional musculoskeletal complaints Integumentary/Breasts: Skin/Breast: Denies rash Neurologic: Denies confusion and Reports headache(s) Psychiatric: Psychiatric: Denies confusion Exam Narrative: Exam Narrative: Awake and alert. Const: General: no acute distress HENMT: Mouth: Yes moist mucous membranes Neck: Neck: supple Lymphatic: lymphadenopathy not noted Resp: Auscultation: clear to auscultation bilaterally, no rales and no wheezes Cardio: Rate: regular rate Rhythm: regular rhythm GI: Inspection: non-distended GI Palp: Yes Soft to palpation and No Tenderness to palpation present (GI) (to palpation this morning
[2019-09-09] MEDS: carvediloL 3.125 MG TABLET PO ×2 (08:47→21:54)
[2019-09-09] MEDS: LACTATED RINGERS 1,000 ML 150 ML IV CONT (10:05)
--- NOTE | 2019-09-09 11:42 | WPDANESEPPF ---
Anes - Initial Pre Proc Eval Procedure: Operation Date: 09/08/19 15:00 Proposed Procedures p Laparoscopic Cholecystectomy with Intraoperative Cholangiogram, Possible Open - Clovis Blackburn MD Operation Date: 09/09/19 10:30 Proposed Procedures p Endoscopic Retro Cholangiopancreatogram - Shaheed Dalton MD Date/Time: 09/09/19 11:42 Pre Op Diagnosis: chest pain Patient Data Age: 64 Gender: M Height: 1.85 m Weight: 86.2 kg Last Vital Signs Temp 37.5 C 09/09/19 10:07 Pulse 78 09/09/19 10:07 Resp 16 09/09/19 10:07 BP 134/69 09/09/19 10:07 Pulse Ox 99 09/09/19 10:07 Allergies Allergy/AdvReac Type Severity Reaction Status Date / Time levofloxacin Allergy Unknown Joint Pain Verified 09/09/19 10:01 Home Medications Medication Instructions Recorded Confirmed Type aspirin [Adult Low Dose Aspirin] 81 mg DAILY 09/07/19 09/07/19 History atorvastatin 40 mg PO DAILY 09/07/19 09/07/19 History carvedilol 3.125 mg PO BID 09/07/19 09/07/19 History cholecalciferol (vitamin D3) 50,000 unit PO MONTHLY 09/07/19 09/07/19 History nitroglycerin 0.4 mg SUBLINGUAL PRN PRN 09/07/19 09/07/19 History omeprazole 20 mg PO DAILY 09/07/19 09/07/19 History ticagrelor [Brilinta] 90 mg PO BID 09/07/19 09/07/19 History Laboratory Tests 09/08/19 09/08/19 09/08/19 07:35 13:46 14:22 WBC RBC Hgb Hct MCV MCH MCHC RDW Plt Count MPV Sodium Potassium Chloride Carbon Dioxide BUN Creatinine Estim Creat Clear Calc Estimated GFR Glucose POC Capillary Glucose 66 mg/dl mg/dl 67 mg/dl mg/dl (65-105) (65-105) Calcium Total Bilirubin Direct Bilirubin AST ALT Alkaline Phosphatase Total Protein Albumin Lipase Blood Type A Positive Antibody Screen Negative 09/08/19 09/09/19 09/09/19 21:11 05:36 05:36 WBC 6.4 K/mm3 K/mm3 (4.5-10.0) RBC 4.23 M/mm3 L M/mm3 (4.6-6.20) Hgb 14.4 g/dL g/dL (14.0-18.0) Hct 41.4 % L % (42.0-52.0) MCV 97.9 fl fl (80-100) MCH 34.0 pg pg (26-34) MCHC 34.8 g/dl g/dl (32-36) RDW 12.9 % % (11.5-14.5) Plt Count 176 k/mm3 k/mm3 (150-375) MPV 9.5 fl fl (7.4-10.4) Sodium 135 mmol/L L mmol/L (137-145) Potassium 4.1 mmol/L mmol/L (3.4-5.0) Chloride 103 mmol/L mmol/L (98-107) Carbon Dioxide 23 mmol/L mmol/L (22-30) BUN 11 mg/dL mg/dL (9-20) Creatinine 0.70 mg/dL mg/dL (0.7-1.3) Estim Creat Clear Calc 105 ml/min ml/min Estimated GFR > 60 (59 - ) Glucose 122 mg/dL H mg/dL (75-110) POC Capillary Glucose 108 mg/dl mg/dl (65-105) Calcium 8.5 mg/dL mg/dL (8.4-10.2) Total Bilirubin 3.8 mg/dL H mg/dL (0.2-1.3) Direct Bilirubin 1.1 mg/dL H mg/dL (0-0.3) AST 125 U/L H U/L (17-59) ALT 149 U/L H U/L (4-50) Alkaline Phosphatase 34 U/L L U/L (38-126) Total Protein 7.0 g/dL g/dL (6.3-8.2) Albumin 4.1 g/dL g/dL (3.5-5.1) Lipase 25 U/L U/L (23-300) Blood Type Antibody Screen Patient hx anesthesia problems: none Family hx anesthesia problems: none PMFSH Past Medical History Medical History Acne rosacea BMI 24.0-24.9, adult Chronic cholecystitis with calculus (~07/2018) Colon cancer screening Colonoscopy has been ordered but delayed due to code 19 concerns Hearing loss Hx of myocardial infarction Surgical History Surgical
[2019-09-09 16:28] LABS: Add Urine Microscopic? YES; Appearance Urine Clear (Clear); Bacteria Urine Trace /hpf; Bilirubin Urine Negative (Negative); Blood Urine Negative (Negative); Color Urine Yellow (Yellow); Glucose Urine UA Negative (Negative); Ketones Urine 1+ mg/dL (Negative); Leukocyte Esterase Ur Negative LEU/UL (NEGATIVE); Mucus Urine Rare /lpf; Nitrate Urine Negative (Negative); Protein Urine Negative (Negative); RBC Urine 0-2 /hpf (0-2); WBC Urine 0-3 /hpf (0-3)
[2019-09-09] MEDS: DEXTROSE 5%/0.9% SOD CHL 1,000 ML 75 ML IV CONT (16:45)
--- NOTE | 2019-09-09 19:31 | PC.NURSE ---
To OR per [ stretcher], IV [18 LH and SL at 0945 ]
--- NOTE | 2019-09-09 19:34 | PC.NURSE ---
Returned from OR per [ stretcher] at 1400
[2019-09-09] MEDS: SENNA/DOCUSATE SODIUM TABLET 2 TAB PO (21:55)
[2019-09-10] VITALS: PULSE 65
[2019-09-10 04:00] VITALS: PULSE 75
[2019-09-10] MEDS: ACETAMINOPHEN 500 MG TABLET PO ×2 (05:21→12:37)
[2019-09-10] MEDS: DEXTROSE 5%/0.9% SOD CHL 1,000 ML 75 ML IV CONT (05:22)
[2019-09-10 06:00] VITALS: BP 124/69; PULSE 64; RESP 18; TEMP 37; O2SAT 100
[2019-09-10 06:12] LABS: Alanine Aminotransferase 175 U/L (4-50); Albumin Level 3.9 g/dL (3.5-5.1); Alkaline Phosphatase 39 U/L (38-126); Aspartate Amino Transferase 108 U/L (17-59); Bilirubin,Total 2.2 mg/dL (0.2-1.3)
--- NOTE | 2019-09-10 10:06 | PM.PNGS ---
Progress Note: A&P Assessment and Plan (1) Choledocholithiasis: Code(s): K80.50 - Calculus of bile duct without cholangitis or cholecystitis without obstruction Status: Acute Assessment and Plan: patient had ERCP yesterday without successful cannulation of the bile duct However, it appears patient may have passed a small stone that was present on the intraoperative cholangiogram. MRCP showed no choledocholithiasis. (2) Chronic cholecystitis with calculus: Onset Date: ~07/2018 Code(s): K80.10 - Calculus of gallbladder with chronic cholecystitis without obstruction Status: Acute Assessment and Plan: Doing well postop day 2. Incisions clean and dry. Okay with me to restart Brilinta and aspirin tomorrow morning if everything going well when he discharges. (3) CAD (coronary artery disease): Onset Date: ~07/2018 Qualifiers: Coronary Disease-Associated Artery/Lesion type: [place] artery [place] vs. transplanted heart: [place] heart Associated angina: without angina Qualified Code(s): I25.10 - Atherosclerotic heart disease of [place] coronary artery without angina pectoris Code(s): I25.10 - Atherosclerotic heart disease of [place] coronary artery without angina pectoris Status: Acute (4) Chest pain: Onset Date: 09/07/19 Qualifiers: Chest pain type: unspecified Qualified Code(s): R07.9 - Chest pain, unspecified Code(s): R07.9 - Chest pain, unspecified Status: Ruled-out Additional Plan If patient goes home would send home on [place] 5/325 for pain and to follow the low-fat diet that he already has instructions on. Patient also should schedule appointment to have a recheck with me in about 2-3 weeks. Subjective Subjective Date/Time Seen: 09/10/19 10:06 Post Op day: 2 Interval history: Patient has some mild right upper quadrant tenderness. Also some superficial tenderness near umbilicus from his incision. Not nauseated. MRCP completed and shows no choledocholithiasis. Discussed with Dr. Caal but saw the patient before the results back. Patient planning on trying a liquid breakfast. Review of Systems Constitutional: Constitutional: Reports as per HPI, Reports no additional constitutional complaints and Denies headache(s) Eyes: Eyes: Denies loss of vision and Denies eye pain ENT: Reports Normal hearing present, Denies change in voice, Denies dizziness, Denies headache(s), Denies odynophagia and Reports other (Mucous Membranes moist.) Cardiovascular: Cardiovascular: Reports chest pain (Mainly centrally and the chest and low.), Denies pedal edema, Denies palpitations and Denies dyspnea Respiratory: Respiratory: Reports no additional respiratory complaints, Denies pain on inspiration, Denies dyspnea and Denies wheezing Gastrointestinal: Gastrointestinal: Reports abdominal pain ( Mild, right upper quadrant), Reports dyspepsia, Denies diarrhea, Denies odynophagia and Denies vomiting Musculoskeletal: Musculoskeletal: Denies back pain, Denies arthralgias and Reports other (No calf swelling or edema) Integumentary/Breasts: Skin/Breast: Reports system reviewed and no additional complaints, except as docu Neurologic: Reports Normal hearing present, Denies dizziness, Denies headache(s), Denies loss of vision and Denies memory loss Psychiatric: Psychiatric: Denies memory loss and Denies panic attacks Endocrine: Endocrine: Reports no additional endocrine complaints and Denies palpitations Hematologic/Lymphatic: Hematologic/Lymphatic: Reports no additional hematologic/lymphatic complaints Allergic/Immunologic: Allergic/Immunologic: Denies wheezing Exam Const: General: cooperative, no acute distress, well developed, alert and awake Nutritional Appearance: well nourished Orientation/consciousness: patient oriented x3 Limitations: no limitations HENMT: Head: normal to inspection, normocephalic and atraumatic Ears: hearing grossly norm
[2019-09-10 10:10] VITALS: PULSE 80
[2019-09-10] MEDS: carvediloL 3.125 MG TABLET PO (10:10)
[2019-09-10] MEDS: PANTOPRAZOLE 40 MG TABLET PO (10:10)
[2019-09-10] MEDS: ATORVASTATIN 40 MG TABLET PO (10:10)
--- NOTE | 2019-09-10 10:11 | WPDGIPROGNO ---
Progress Note: A&P Additional Plan Patient alert this morning. He notices some right upper quadrant abdominal discomfort. Physical exam reveals Vital Signs to be stable. HEENT exam unremarkable. He is anicteric. Lungs are clear. Heart without murmur. Abdomen reveals bowel sounds to be present. Mild diffuse tenderness. Especially right upper quadrant. MRCP reveals no residual gallstone in the common bile duct. Impression 1. Choledocholithiasis. This appears resolved with spontaneous passage of common duct stone. 2. Status post lap patel. 3. Abdominal pain. It is possible patient has post ERCP pancreatitis. Plan for pain control and liquid diet at this time. Would hold on discharge till diet is tolerated and pain has improved. Lipase will be ordered. Subjective Date/time seen: 09/10/19 10:11 Objective Data Vital Signs Vital Signs: Vital Signs - 24 hr 09/09/19 13:52 09/09/19 14:02 09/09/19 14:12 Temperature Pulse Rate 88 80 71 Respiratory Rate Blood Pressure 118/77 117/84 116/83 Pulse Oximetry 97 98 96 09/09/19 14:22 09/09/19 14:32 09/09/19 17:00 Temperature Pulse Rate 62 62 63 Respiratory Rate Blood Pressure 113/78 112/80 Pulse Oximetry 98 94 09/09/19 17:04 09/09/19 18:24 09/09/19 20:00 Temperature 36.4 C 37.2 C Pulse Rate 63 73 73 Respiratory Rate 20 16 Blood Pressure 113/59 L 109/52 L Pulse Oximetry 100 98 09/09/19 21:54 09/09/19 22:00 09/10/19 00:00 Temperature 37.0 C Pulse Rate 78 67 65 Respiratory Rate 18 Blood Pressure 117/58 L Pulse Oximetry 98 09/10/19 04:00 09/10/19 06:00 Temperature 37.0 C Pulse Rate 75 64 Respiratory Rate 18 Blood Pressure 124/69 Pulse Oximetry 100 Intake/Output Intake/Output: Intake & Output 09/07/19 09/08/19 09/09/19 09/10/19 23:59 23:59 23:59 23:59 Intake Total 1200 2186 1254 Output Total 1000 1650 800 Balance 200 536 454 Meds/Results Medications: Active Medications Generic Name Dose Route Start Last Admin Trade Name Freq PRN Reason Stop Dose Admin Acetaminophen 500 mg 09/08/19 18:11 09/10/19 05:21 Tylenol Tablet PO 500 mg Q6H PRN Administration Mild Pain (1-3) or Fever Hydrocodone Bitart/Acetaminophen 1 tab 09/08/19 18:11 09/09/19 22:50 [place] 5-325 Mg PO 1 tab Q4H PRN Administration Pain Rated 4-6 Hydrocodone Bitart/Acetaminophen 1 tab 09/08/19 18:11 09/09/19 16:39 [place] 7.5-325 Mg PO 1 tab Q4H PRN Administration Pain Rated 7-10 Aspirin 81 mg 09/08/19 09:00 09/08/19 20:11 Aspirin Ec BY MOUTH Not Given DAILY [facility] Atorvastatin Calcium 40 mg 09/08/19 09:00 09/09/19 16:37 Lipitor PO Not Given DAILY [facility] Carvedilol 3.125 mg 09/07/19 21:25 09/09/19 21:54 Coreg PO 3.125 mg Q12HR MOODY Administration Diphenhydramine HCl 25 mg 09/08/19 18:11 Benadryl Inj IV PUSH Q6H PRN Itching Dextrose/Sodium Chloride 1,000 mls @ 75 mls/hr 09/08/19 08:20 09/10/19 05:22 Dextrose 5% Sodium Chloride 0.9% IV CONT 75 mls/hr .[id number] MOODY Administration Morphine Sulfate 2 mg 09/08/19 18:11 Morphine Sulfate Inj IV PUSH Q2H PRN Pain Rated 4-6 Morphine Sulfate 4 mg 09/08/19 18:11 Morphine Sulfate Inj IV PUSH Q2H PRN Pain Rated 7-10 Naloxone HCl 0.1 mg 09/08/19 18:11 Narcan IV PUSH Q2M PRN Opiate Reversal Nitroglycerin 0.4 mg 09/07/19 21:22 Nitrostat Subl 0.4 Mg (1/150) SUBLINGUAL Q5MIN PRN Chest Pain Pantoprazole Sodium 40 mg 09/08/19 09:00 09/09/19 16:38 Protonix PO Not Given QAM [facility] Senna/Docusate Sodium 2 tab 09/08/19 21:00 09/09/19 21:55 Senokot S Tablet PO 2 tab HS [facility] Administration Ticagrelor 90 mg 09/07/19 21:25 09/08/19 20:11 Brilinta PO Not Given BID [facility] Radiology Results: ITS Impressions Chest X-Ray 09/07/19 17:27 IMPRESSION: 1. Minimal airspace opacities of the lung bases, cons
--- NOTE | 2019-09-10 10:51 | PM.IMPN ---
Progress Note: A&P Assessment and Plan (1) Chronic cholecystitis with calculus: Onset Date: ~07/2018 Code(s): K80.10 - Calculus of gallbladder with chronic cholecystitis without obstruction Status: Acute Assessment and Plan: Per patient, symptoms on presentation similar to previous known gallbladder attacks. Was previously scheduled to have gallbladder removed but canceled due to current pandemic. General surgery consulted from the emergency room. Patient now S/P laparoscopic cholecystectomy with intraoperative cholangiogram on 09/08/[address] Blackburn. GI consulted due to intraoperative cholangiogram with distal common bile duct obstruction. Hopeful discharge later today as long as no issues after eating lunch. Discussed with both GI and General surgery. (2) Choledocholithiasis: Code(s): K80.50 - Calculus of bile duct without cholangitis or cholecystitis without obstruction Status: Acute Assessment and Plan: Intraoperative cholangiogram as noted above. Appreciate help from GI. ERCP done by on 09/09/[address] Dalton. Unable to cannulate common bile duct with MRCP done today. MRCP is negative. LFTs with slight improvement today although still elevated. Discussed with Dr. Dalton. Will see how patient is does after lunch. If no significant issues. Will discharge this afternoon. (3) CAD (coronary artery disease): Onset Date: ~07/2018 Qualifiers: Associated angina: without angina Coronary Disease-Associated Artery/Lesion type: [place] artery [place] vs. transplanted heart: [place] heart Qualified Code(s): I25.10 - Atherosclerotic heart disease of [place] coronary artery without angina pectoris Code(s): I25.10 - Atherosclerotic heart disease of [place] coronary artery without angina pectoris Status: Acute Assessment and Plan: Known history of myocardial infarction with stent placement. No acute issue. Last dose of Brilinta at 8:00 a.m. on 09/07/2019. Last ASA on 09/06/2019. Continue to hold Brilinta and ASA with plan to restart 24 hours after discharge. Stable. Continue Coreg and atorvastatin. Will monitor. (4) DVT prophylaxis: Code(s): Z29.9 - Encounter for prophylactic measures, unspecified Status: Acute Assessment and Plan: No mechanical or pharmacologic as low risk presently and need for additional procedure today. Time Spent With Patient Time with patient: 15 - 25 minutes Subjective Date/time seen: 09/10/19 10:51 Interval history: Date of Service: 09/10/2019. Admitted with epigastric pain and found to have cholecystitis. Patient also with known CAD. Now S/P laparoscopic cholecystectomy with intraoperative cholangiogram followed by ERCP yesterday. Was unable to have cannulation of common bile duct during ERCP and therefore had MRCP this morning. Patient reports he does have some pain in the RUQ but relieved by holding a pillow against it. No nausea or vomiting. Just finished breakfast. No chest pain. No shortness of breath. Hoping to go home. Review of Systems Review of Systems: Narrative: Feeling better. Wants to go home. Constitutional: Constitutional: Denies chills and Denies fever(s) ENT: Denies nasal congestion and Denies nasal discharge Cardiovascular: Cardiovascular: Denies chest pain and Denies palpitations Respiratory: Respiratory: Denies dyspnea Gastrointestinal: Gastrointestinal: Reports abdominal pain (RUQ), Denies nausea and Denies vomiting Genitourinary: Genitourinary: Reports no additional male genitourinary complaints Musculoskeletal: Musculoskeletal: Reports no additional musculoskeletal complaints Integumentary/Breasts: Skin/Breast: Denies rash Neurologic: Denies headache(s) Psychiatric: Psychiatric: Denies depression Exam Narrative: Exam Narrative: Awake and alert. Const: General: no acute distress HENMT: Mouth: Yes moist mucous membranes Neck: Neck: supp
[2019-09-10 12:00] VITALS: PULSE 62
[2019-09-10 14:05] VITALS: BP 137/83; PULSE 65; RESP 18; TEMP 36.6; O2SAT 100
--- NOTE | 2019-09-10 15:52 | WPDANESPN ---
Anes - Prog Note Post-Op Date/Time: 09/10/19 15:52 Cardiovascular status: normal Respiratory status: normal Airway patency: baseline Mental status: baseline Post-Op hydration status: normal Vital Signs: Last Vital Signs Temp 36.6 C 09/10/19 14:05 Pulse 65 09/10/19 14:05 Resp 18 09/10/19 14:05 BP 137/83 09/10/19 14:05 Pulse Ox 100 09/10/19 14:05 I/O: Intake & Output 09/09/19 09/10/19 09/10/19 23:59 07:59 15:59 Intake Total 386 1254 480 Output Total 300 800 Balance 86 454 480 Laboratory Tests 09/09/19 05:36 09/09/19 05:36 09/09/19 09/10/19 16:18 05:13 Total Bilirubin 2.2 H Direct Bilirubin 0.0 AST 108 H ALT 175 H Alkaline Phosphatase 39 Total Protein 7.0 Albumin 3.9 Urine Color Yellow Urine Appearance Clear Urine pH 7.0 Ur Specific [place] 1.010 Urine Protein Negative Urine Glucose (UA) Negative Urine Ketones 1+ H Ur Blood (Man) Negative Urine Nitrate Negative Urine Bilirubin Negative Urine Urobilinogen 4.0 H Ur Leukocyte Esterase Negative Urine RBC 0-2 Urine WBC 0-3 Urine Bacteria Trace Hyaline Casts 3-4 H Urine Mucus Rare Post-procedural complaints: none Patient Feedback: Patient satisfied with anesthetic care.
--- NOTE | 2019-09-10 15:53 | PM.DS ---
DS: Diagnosis Admitting Diagnosis Admitting Diagnosis: Chest pain, unspecified Discharge Diagnosis (1) Chronic cholecystitis with calculus: Onset Date: ~07/2018 Code(s): K80.10 - Calculus of gallbladder with chronic cholecystitis without obstruction Status: Acute (2) Choledocholithiasis: Code(s): K80.50 - Calculus of bile duct without cholangitis or cholecystitis without obstruction Status: Acute (3) CAD (coronary artery disease): Onset Date: ~07/2018 Qualifiers: Coronary Disease-Associated Artery/Lesion type: [place] artery [place] vs. transplanted heart: [place] heart Associated angina: without angina Qualified Code(s): I25.10 - Atherosclerotic heart disease of [place] coronary artery without angina pectoris Code(s): I25.10 - Atherosclerotic heart disease of [place] coronary artery without angina pectoris Status: Acute DS: Summary Hospital Course Reason for hospitalization: Epigastric pain. Hospital Course: Date of Service of Discharge: September 10, 2019. History of Present Illness: Patient is a 64-year-old gentleman with known CAD as well as gallbladder dysfunction present emergency from home with chest/epigastric pain. Pain reported to be at the bottom of his sternum in the epigastric area. Pain started 40 minutes before arrival and was associated with shortness of breath and sweats. Patient reports having 3 similar episodes in the past 3 days. Patient was to have his gallbladder removed but surgery canceled due to COVID-19 pandemic. No recent fever, chills or cough. Pain began after having a turkey sandwich and some tortilla chips for lunch. On evaluation in the emergency room, initial testing was negative for cardiac issues but patient was admitted for rule out of cardiac problem as well as further evaluation of gallbladder. Course in Hospital: Patient was initially admitted to the IMU. Serial troponin levels were completed and negative. No EKG changes. Telemetry was monitored throughout his stay with patient remaining in sinus rhythm. Given nature of his pain, it was felt symptoms were much more likely result of his known gallbladder dysfunction. He was seen in consultation by Dr. Blackburn with decision made to take patient to the operating room on 09/08/2019 for laparoscopic cholecystectomy. Of note, patient had his last dose of from went 24 hours prior to procedure with last dose of aspirin 48 hours prior to procedure. During the laparoscopic cholecystectomy intraoperative cholangiogram was done revealing probable stone in the common bile duct. As result, Dr. Dalton was consulted from gastroenterology for ERCP. ERCP was attempted on 09/09/2019 but unfortunately common bile duct could not be cannulated due to swelling. Patient did undergo MRCP on 09/10/2019 as result which was negative. LFTs were noted to be increased after laparoscopic cholecystectomy as expected. These levels were decreasing by discharge. Patient was started on clear liquids advanced to a low-fat diet after completion of MRCP. Patient tolerated diet without any significant pain. Aside from holding Brilinta and ASA, patient was given his other cardiac medications during hospitalization. He home no acute cardiac issues. He had no other problems. Plan to resume Brilinta and ASA 24 hours after discharge. With the patient stable, he was able to discharge home on the afternoon of 09/10/2019. His primary physician, Dr. Greco, was aware of admission as well as discharge. Status at Discharge Cognitive/behavioral status at discharge: Stable. Functional status at discharge: independent ambulation Overall status at discharge: patient is back to baseline Time Spent with Patient Time attestation: Total time spent providing and/or coordinating discharge services: 40 minutes. Time spent: Greater than 30 minutes Exam Narrative: Exam Narrative: Awake and alert. Const: General: no acute distress HENMT:
== END 2019-09-10 16:20 | disposition home or self-care (01) | DRG 419 ==
LOC: ANHED 19:00 → ANHIMU 19:22 → ANH3MEDSUR 09-08 18:03
PROVIDERS: Internal Medicine; Internal Medicine Gastroenterology; Surgery; Admitting Provider Family Medicine; Emergency Provider Emergency Medicine; PCP Internal Medicine; Visit Provider Hospitalist
PROC: 0FT44ZZ Resection of Gallbladder, Percutaneous Endoscopic Approach (ICD-10-PCS; CPT 47562; principal; 2019-09-08 15:00)
PROC: 0DJ08ZZ Inspection of Upper Intestinal Tract, Via Natural or Artificial Opening Endoscopic (ICD-10-PCS; CPT 43260; principal; 2019-09-09 10:30)
DX: K80.64 Calculus of gallbladder and bile duct with chronic cholecystitis without obstruction (principal); Z95.5 Presence of coronary angioplasty implant and graft; I25.2 Old myocardial infarction; L71.9 Rosacea, unspecified; H91.90 Unspecified hearing loss, unspecified ear; I25.10 Atherosclerotic heart disease of native coronary artery without angina pectoris; Z80.0 Family history of malignant neoplasm of digestive organs
CPT/HCPCS: 36415; 71045; 74183; 74300; 76376; 80048; 80053; 80076; 81001; 83690; 83735; 83880; 84484; 85025; 85027; 85730; 86850; 86900; 86901; 88304; 99285; A9270; A9577; J0690; J1100; J2001; J2270; J2405; J2704; J2710; J3010; J7030; J7042; J7120; Q9966

== ENCOUNTER 2019-10-07 00:04 | Day surgery (SDC) | payer OTHER, SELFPAY ==
[2019-10-04 11:57] VITALS: BMI 22.6
[2019-10-07 09:26] VITALS: BMI 22.5
[2019-10-07 09:47] VITALS: BP 141/81; PULSE 66; RESP 16; TEMP 36.6; O2SAT 100
--- NOTE | 2019-10-07 10:05 | PM.HPGS ---
History of Present Illness History of Present Illness Consent: Risks, benefits, and alternatives have been discussed and questions answered. Patient agrees to proceed with procedure. Chief complaint: Neoplasm Screening Narrative: Francesco Ramires is a 64 year old male undergoing colonoscopy secondary to positive colo guard test. Patient does have a family history of colon cancer in his father and paternal grandfather. I performed a colonoscopy on this patient 11 years ago was a poor prep but no polyps were seen. He did receive a follow-up bladder in 2013 for colonoscopy but states he did have this done since he was too sick at that time. [facility] Past Medical History Medical History Acne rosacea ASHD (arteriosclerotic heart disease) BMI 23.0-23.9, adult BMI 24.0-24.9, adult Chronic cholecystitis with calculus (~07/2018) Colon cancer screening Colonoscopy has been ordered but delayed due to code 19 concerns Hearing loss Hx of myocardial infarction Vitamin D deficiency Surgical History Surgical History H/O heart artery stent 3 stents August 2019 History of cardiac catheterization Family History Family History Sibling Hypertension Carcinoma of colon Mother Dementia Father Heart attack Carcinoma of colon Social History Social History Social History: Primary care physician: Dr. Dane Greco Code status: Full code Smoking status: Never smoker Alcohol intake: current Drinks per week: 4 Additional living arrangements comments: He has been and has 4 children from his 1st marriage. He is remarried and his has 2 children. All the children are grown and out of the house. 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 Gender identity (if verbalized by the patient): Male Spiritual care concerns: No Agree to blood products: Yes Meds Home Medications and Allergies Home Medications Medication Instructions Recorded Confirmed Type Brilinta 90 mg PO BID 09/07/19 10/07/19 History aspirin [Adult Low Dose Aspirin] 81 mg DAILY 09/07/19 10/07/19 History atorvastatin 40 mg PO DAILY 09/07/19 10/07/19 History carvedilol [Coreg] 3.125 mg PO BID #0 09/07/19 10/07/19 History nitroglycerin 0.4 mg SUBLINGUAL PRN PRN 09/07/19 10/07/19 History Allergies Allergy/AdvReac Type Severity Reaction Status Date / Time levofloxacin Allergy Unknown Joint Pain Verified 10/07/19 09:22 Vital Signs Vital Signs - 24 hr 10/07/19 09:47 Temperature 36.6 C Pulse Rate 66 Respiratory Rate 16 Blood Pressure 141/81 H Pulse Oximetry 100 Exam Const: Orientation/consciousness: patient oriented x3 Resp: Auscultation: clear to auscultation bilaterally Cardio: Rate: regular rate Rhythm: regular rhythm Heart sounds: no murmurs GI: GI Palp: Yes Soft to palpation, No Tenderness to palpation present (GI), Yes No hepatosplenomegaly present and No Palpable mass present Auscultation: normal bowel sounds Neuro: General: patient oriented x3 and no focal motor deficits Extrem: General: no pedal edema Assessment and Plan Additional Plan colonoscopy for evaluation of positive colo guard test and a family history of colon cancer in father and grandfather.
[2019-10-07] MEDS: LACTATED RINGERS 1,000 ML 150 ML IV CONT (10:06)
--- NOTE | 2019-10-07 10:21 | WPDANESEPPF ---
Anes - Initial Pre Proc Eval Procedure: Operation Date: 10/07/19 10:30 Proposed Procedures p Screening Colonoscopy - Yung Orosco MD Date/Time: 10/07/19 10:21 Surgeon: Yung Orosco MD Pre Op Diagnosis: Neoplasm Screening Patient Data Age: 64 Gender: M Height: 6 ft 1 in Weight: 77.4 kg Last Vital Signs Temp 36.6 C 10/07/19 09:47 Pulse 66 10/07/19 09:47 Resp 16 10/07/19 09:47 BP 141/81 H 10/07/19 09:47 Pulse Ox 100 10/07/19 09:47 Allergies Allergy/AdvReac Type Severity Reaction Status Date / Time levofloxacin Allergy Unknown Joint Pain Verified 10/07/19 09:22 Home Medications Medication Instructions Recorded Confirmed Type Brilinta 90 mg PO BID 09/07/19 10/07/19 History aspirin [Adult Low Dose Aspirin] 81 mg DAILY 09/07/19 10/07/19 History atorvastatin 40 mg PO DAILY 09/07/19 10/07/19 History carvedilol [Coreg] 3.125 mg PO BID #0 09/07/19 10/07/19 History nitroglycerin 0.4 mg SUBLINGUAL PRN PRN 09/07/19 10/07/19 History Patient hx anesthesia problems: none Family hx anesthesia problems: none PMFSH Past Medical History Medical History Acne rosacea ASHD (arteriosclerotic heart disease) BMI 23.0-23.9, adult BMI 24.0-24.9, adult Chronic cholecystitis with calculus (~07/2018) Colon cancer screening Colonoscopy has been ordered but delayed due to code 19 concerns Hearing loss Hx of myocardial infarction Vitamin D deficiency Surgical History Surgical History H/O heart artery stent 3 stents August 2019 History of cardiac catheterization Family History Family History Sibling Hypertension Carcinoma of colon Mother Dementia Father Heart attack Carcinoma of colon Social History Social History Social History: Primary care physician: Dr. Dane Greco Code status: Full code Smoking status: Never smoker Alcohol intake: current Drinks per week: 4 Additional living arrangements comments: He has been and has 4 children from his 1st marriage. He is remarried and his has 2 children. All the children are grown and out of the house. 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 Questions were solicited and answers provided to the satisfaction of the patient/family/POA.
[2019-10-07] MEDS: SIMETHICONE ORAL SUSPENSION 20 MG/0.3 ML 30 ML BOTTLE 0.6 ML IRRIGATION (11:23)
[2019-10-07 11:30] VITALS: BP 115/77; PULSE 82; RESP 18; O2SAT 98
[2019-10-07 11:36] VITALS: BP 106/72; PULSE 80; RESP 25; O2SAT 97
[2019-10-07 11:40] VITALS: BP 113/80; PULSE 76; RESP 18; O2SAT 100
== END 2019-10-07 12:01 | disposition home or self-care (01) ==
PROVIDERS: PCP Internal Medicine; Visit Provider Internal Medicine Gastroenterology
PROC: 0DJD8ZZ Inspection of Lower Intestinal Tract, Via Natural or Artificial Opening Endoscopic (ICD-10-PCS; CPT 45378; principal; 2019-10-07 10:30)
DX: Z12.11 Encounter for screening for malignant neoplasm of colon (principal); R19.5 Other fecal abnormalities; D12.2 Benign neoplasm of ascending colon; K64.1 Second degree hemorrhoids; K57.30 Diverticulosis of large intestine without perforation or abscess without bleeding; Z80.0 Family history of malignant neoplasm of digestive organs; I25.10 Atherosclerotic heart disease of native coronary artery without angina pectoris; I25.2 Old myocardial infarction; E55.9 Vitamin D deficiency, unspecified; L71.9 Rosacea, unspecified; Z79.01 Long term (current) use of anticoagulants; Z79.82 Long term (current) use of aspirin; Z95.5 Presence of coronary angioplasty implant and graft
CPT/HCPCS: 45380; 88305; J2704; J7120

== ENCOUNTER → 2020-06-29 08:06 | Outpatient (CLI) | payer OTHER, SELFPAY ==
--- NOTE | ~2020-06-29 | CT_ITS ---
EXAMINATION: CT abdomen pelvis wo/w con EXAM DATE: 06/29/2020 08:53 INDICATION: R31.9 - Hematuria, unspecified. TECHNIQUE: Spiral CT of the abdomen and pelvis was performed without contrast. The patient was then injected with small bolus intravenous Omnipaque 350, followed by delay of approximately 10 minutes to allow collecting system to opacify. A post contrast scan abdomen and pelvis was performed during inj ection of remaining contrast. A total of 130 cc intravenous contrast was administered. The dose-dustin th product (DLP) for this examination was 1546.12 mGy-cm. The exposure was tailored according to pat ient size (auto mA exposure control), and iterative reconstruction (ASIR) was used as additional dose reduction technique. There is no prior study for comparison. FINDINGS: Enhanced several left renal cysts measuring up to 1.3 cm. No nephrolithiasis or hydronephro sis. The kidneys enhance symmetrically. There are no suspicious renal lesions. The calyces and op acified portions of ureters are unremarkable, without filling defects or focal suspicious strictures. The bladder is unremarkable. There is moderate prostatomegaly. Moderate-sized right, small left ing uinal fat-containing hernias. There are several subcentimeter liver lesions consistent with cysts. The spleen, pancreas, and adrena l glands are unremarkable. There are cholecystectomy clips. There is no retroperitoneal or pelvic l ymphadenopathy. There is mild scattered arteriosclerotic disease. Retroaortic left renal vein. There is mild to moderate colonic diverticulosis. There is no adjacent inflammatory change to sugges t diverticulitis. Normal appendix. The stomach and small bowel are unremarkable. There is expected amount of colonic stool. No free intraperitoneal gas. The heart is normal in size. There are no pericardial or pleural effusions. The lung bases are unremarkable. There are no osteoblastic or os teolytic lesions identified. Mild lumbar dextroscoliosis. IMPRESSION: 1. No suspicious genitourinary findings. 2. Moderate prostatomegaly. 3. Inguinal hernias right greater than left. 4. Sigmoid diverticulosis. Reviewed, dictated and finalized at location A. [facility]
[2020-06-29 08:31] LABS: Estimated Glomerular Filt Rate > 60
== END ==
PROVIDERS: PCP Internal Medicine; Visit Provider Internal Medicine
DX: R31.9 Hematuria, unspecified (principal); N40.0 Benign prostatic hyperplasia without lower urinary tract symptoms; K40.20 Bilateral inguinal hernia, without obstruction or gangrene, not specified as recurrent; K57.30 Diverticulosis of large intestine without perforation or abscess without bleeding
CPT/HCPCS: 74178; Q9967

== ENCOUNTER 2020-07-28 13:02 | Outpatient (CLI) | payer OTHER, SELFPAY ==
[2020-07-28 13:31] LABS: Basophils Percent Auto 0.5 % (0.2-1.2); Eosinophils Absolute Auto 0.4 K/mm3 (0-0.3); Eosinophils Percent Auto 8.4 % (0-4.4); Hematocrit 45.1 % (42.0-52.0); Hemoglobin 15.3 g/dL (14.0-18.0); Immature Granulocyte Absolute 0.01 K/mm3 (0.00-0.031); Immature Granulocyte Percent A 0.2 % (0-0.5); Lymphocytes Absolute Auto 1.13 K/mm3 (0.9-3.2); Lymphocytes Percent Auto 25.7 % (18.3-44.2); Mean Corpuscular HGB Conc 33.9 g/dl (32-36); Mean Corpuscular Hemoglobin 33.6 pg (26-34); Mean Corpuscular Volume 98.9 fl (80-100); Mean Platelet Volume 9.3 fl (7.4-10.4); Monocytes Absolute Auto 0.5 K/mm3 (0.1-0.6); Monocytes Percent Auto 10.3 % (2.6-8.5); Neutrophils Absolute Auto 2.4 K/mm3 (1.3-6.7); Neutrophils Percent Auto 54.9 % (45.5-73.1); Platelet Count Result 177 k/mm3 (150-375); Red Blood Count 4.56 M/mm3 (4.6-6.20); Red Cell Distribution Width 13.2 % (11.5-14.5); White Blood Count 4.4 K/mm3 (4.5-10.0)
[2020-07-28 13:41] LABS: Prothrombin Time 13.7 Seconds (11.1-14.7)
[2020-07-28 13:42] LABS: Partial Thromboplastin Time 33.2 SECONDS (22.3-36.8)
== END 2020-07-28 13:03 | disposition home or self-care (01) ==
LOC: ANHSURGERY 13:03
PROVIDERS: PCP Internal Medicine; Visit Provider Urology
DX: Z01.818 Encounter for other preprocedural examination (principal); R31.9 Hematuria, unspecified
CPT/HCPCS: 36415; 85025; 85610; 85730

== ENCOUNTER → 2020-07-29 02:55 | Outpatient (CLI) | payer OTHER, SELFPAY ==
[2020-07-29 23:34] LABS: SARS-CoV-2 RNA PCR Negative
== END ==
PROVIDERS: PCP Internal Medicine; Visit Provider Urology
DX: Z01.812 Encounter for preprocedural laboratory examination (principal); Z20.822 Contact with and (suspected) exposure to COVID-19
CPT/HCPCS: C9803; U0003; U0005

== ENCOUNTER 2020-08-01 02:53 | Day surgery (SDC) | payer OTHER, SELFPAY ==
[2020-07-28 10:09] VITALS: BMI 22.8
[2020-08-01] VITALS (8 sets, daily range): BP systolic 94–124; BP diastolic 61–79; PULSE 52–71; RESP 8–20; TEMP 36.5–36.7; O2SAT 97–100
--- NOTE | 2020-08-01 08:00 | WPDANESEPPF ---
Anes - Initial Pre Proc Eval Procedure: Operation Date: 08/01/20 11:15 Proposed Procedures p Trans Urethral Resection Bladder Tumor - Ghulam Barrios MD Date/Time: 08/01/20 08:00 Surgeon: Ghulam Barrios MD Pre Op Diagnosis: hematuria Patient Data Age: 65 Gender: M Height: 1.85 m Weight: 78.5 kg Allergies Allergy/AdvReac Type Severity Reaction Status Date / Time levofloxacin Allergy Unknown Joint Pain Verified 08/01/20 09:40 Home Medications Medication Instructions Recorded Confirmed Type Brilinta 90 mg PO BID 09/07/19 08/01/20 History aspirin [Adult Low Dose Aspirin] 81 mg DAILY 09/07/19 08/01/20 History atorvastatin 40 mg PO HS 09/07/19 08/01/20 History carvedilol [Coreg] 3.125 mg PO BID #0 09/07/19 08/01/20 History nitroglycerin 0.4 mg SUBLINGUAL PRN PRN 09/07/19 07/28/20 History cetirizine [Zyrtec] 10 mg PO DAILY 07/28/20 08/01/20 History cholecalciferol (vitamin D3) 100 mcg PO DAILY 07/28/20 08/01/20 History folic acid 0.8 mg PO DAILY 07/28/20 08/01/20 History mecobalamin (vitamin B12) 1,000 mcg PO DAILY 07/28/20 08/01/20 History Patient hx anesthesia problems: none Family hx anesthesia problems: none [facility] Past Medical History Medical History (Updated 06/23/20 @ 11:36 by [place]) Acne rosacea ASHD (arteriosclerotic heart disease) BMI 22.0-22.9, adult BMI 23.0-23.9, adult BMI 24.0-24.9, adult Chronic cholecystitis with calculus (~07/2018) Colon cancer screening Colonoscopy has been ordered but delayed due to code 19 concerns DJD (degenerative joint disease) Elevated glucose Elevated homocysteine Encounter for routine adult health examination without abnormal findings Exposure to COVID-19 virus Hearing loss Hematuria Hx of myocardial infarction Vitamin D deficiency Surgical History Surgical History H/O heart artery stent 3 stents August 2019 History of cardiac catheterization S/P cholecystectomy Family History Family History Sibling Hypertension Carcinoma of colon Mother Dementia Father Heart attack Carcinoma of colon Social History Social History Social History: Primary care physician: Dr. Dane Greco Code status: Full code Smoking status: Never smoker Alcohol intake: current Drinks per week: 4 Living arrangements: with family Additional living arrangements comments: He has been and has 4 children from his 1st marriage. He is remarried and his has 2 children. All the children are grown and out of the house. 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 Questions were solicited and answers provided to the satisfaction of the patient/family/POA.
[2020-08-01] MEDS: LACTATED RINGERS 1,000 ML 30 ML IV CONT (10:13)
--- NOTE | 2020-08-01 10:40 | WPDHPUPDATE1 ---
History and Physical Update Update Date/Time: 08/01/20 10:40 History and Physical has been reviewed, including an updated exam of the patient. There are NO changes in the patient's condition. Risks, benefits, and alternatives have been discussed and questions answered. Patient agrees to proceed with procedure. Proceed with transurethral resection of bladder tumor.
[2020-08-01] MEDS: ceFAZolin 2 GM/D5W 50 ML 2 GM/50 ML BAG IVPB (10:53)
[2020-08-01] MEDS: LIDOCAINE HCL 2% GEL UROJET 10 ML PKG MUCOUS MEM (11:14)
--- NOTE | 2020-08-01 11:20 | P.OP_ITS ---
Procedure Note - Detailed Date of procedure: 08/01/20 Pre-op diagnosis: hematuria Bladder lesion Post-op diagnosis: same Procedure performed: Transurethral resection of bladder tumor less than 2 cm Description of procedure: Patient is taken the operative suite and correctly identified. Once anesthesia was obtained he was placed in dorsal lithotomy position and prepped draped usual sterile fashion. Twenty-four Macedonian resectoscope sheath inserted in the bladder. The bladder is inspected. Both ureteral orifices normal anatomic position. He has some papillary lesions just superior and proximal to the left ureteral orifice. We went ahead and resected this area and fulgurated the base. Reinspection revealed no other lesions at this time. Specimens were sent for analysis. Bladder was drained. 2% viscous lidocaine was inserted urethra. Patient is taken recovery room stable condition. He will call for path results in 1 week time [facility] Surgeon: Ghulam Barrios MD Drains: No Packing: No Pathology: yes Complications: No immediate complications Condition: stable Disposition: PACU
== END 2020-08-01 13:20 | disposition home or self-care (01) ==
PROVIDERS: PCP Internal Medicine; Visit Provider Urology
PROC: 0TBB8ZZ Excision of Bladder, Via Natural or Artificial Opening Endoscopic (ICD-10-PCS; CPT 52234; principal; 2020-08-01 11:15)
DX: C67.0 Malignant neoplasm of trigone of bladder (principal); I25.10 Atherosclerotic heart disease of native coronary artery without angina pectoris; I25.2 Old myocardial infarction; E55.9 Vitamin D deficiency, unspecified; Z79.01 Long term (current) use of anticoagulants; Z79.82 Long term (current) use of aspirin; Z95.5 Presence of coronary angioplasty implant and graft
CPT/HCPCS: 52234; 36415; 85025; 85610; 85730; 88305; 88307; A9270; C9803; J0690; J1100; J2250; J2405; J2704; J3010; J7120; U0003; U0005